=== PATIENT | male | born 1945 | race Caucasian/White ===

== ENCOUNTER → 2016-10-28 | Outpatient (CLI) | payer OTHER ==
--- NOTE | 2016-10-28 09:25 | KCIC ---
PROCEDURE DEXA. HISTORY Epilepsy. On phenytoin. Screening. COMPARISON October 05, 2014. FINDINGS BMD: (g/cm2) - AP Spine Total (L1-L4): 1.236 - Total left Hip: 1.101 T-Score: - AP Spine Total (L1-L4): 1.3 - Total left Hip: 0.4 Z-Score: - AP Spine Total (L1-L4): 2.2 - Total left Hip: 1.1 Spine bone mineral density has increased by 1.9 percent from prior. Hip bone marrow density has decreased by 2.3 percent from prior. World Health Organization criteria for BMD interpretation classify patients as Normal (T-score at or above -1.0), Osteopenic (T-score between -1.0 and -2.5), or Osteoporotic (T-score at or below -2.5). IMPRESSION Normal bone mineral density in the spine and left hip. Electronically signed by: Zack Madison MD (Oct 28, 2016 09:24:17)
== END | disposition home or self-care (01) ==
LOC: KCIC DEXA 08:38
PROVIDERS: ATTEND Psychiatry & Neurology Neurology with Special Qualifications in Child Neurology
DX: G40.409 Other generalized epilepsy and epileptic syndromes, not intractable, without status epilepticus (principal); M85.88 Other specified disorders of bone density and structure, other site
CPT/HCPCS: 77080